=== PATIENT | male | born 1970 | race African-American/Black ===

== ENCOUNTER 2022-01-06 15:47 | Observation (INO) ==
[2022-01-06 16:12] LABS: Basophils % 0.8 % (0.0-0.8); Eosinophils # 0.1 10*3/uL (0.0-0.87); Eosinophils % 1.4 % (0.00-10.9); Hematocrit 43.4 VOL% (42.0-52.0); Immature Granulocytes % 0.4 %; Immature Granulocytes Absolute 0.02 #; Lymphocytes # 1.6 10*3/uL (1.4-4.0); Lymphocytes % 31.1 % (21.2-54.2); Mean Corpuscular HGB Conc 32.3 GM/DL (32-36); Mean Corpuscular Volume 84.1 FL (87-102); Mean Platelet Volume 12.8 FL (9.6-12.0); Monocytes # 0.5 10*3/uL (0.11-0.8); Neutrophils % 57.3 % (38.7-73.9); Platelet Count 168 T/CUMM (130-400); Red Blood Count 5.16 MC/CUMM (3.8-5.5); Red Cell Distribution Width 11.5 % (9.3-17.3); White Blood Count 5.1 T/CUMM (4-12)
[2022-01-06 16:29] LABS: Alanine Aminotransferase 42 U/L (16-61); Albumin 3.6 G/DL (3.4-5.0); Alkaline Phosphatase 102 U/L (45-117); Aspartate Amino Transferase 16 U/L (0-37); Bilirubin,Total < 0.39 MG/DL (0.20-1.00); Blood Urea Nitrogen 18 MG/DL (7-18); Calcium 9.3 MG/DL (8.5-10.1); Carbon Dioxide 24 MMOL/L (21-32); Chloride 95 MMOL/L (98-107); Osmolality,Calculated 290.1 MOS/KG (273-304); Potassium 4.2 MMOL/L (3.5-5.1); Sodium 128 MMOL/L (136-145); Total Protein 8.3 G/DL (6.4-8.2)
[2022-01-06 16:41] LABS: Glucose 683 MG/DL (74-106)
[2022-01-06] MEDS ORDERED: ASPIRIN 325 MG TABLET PO STA (17:53)
[2022-01-06] MEDS ORDERED: SODIUM CHLORIDE 0.9% 1,000 ML IV STA (17:58)
[2022-01-06] MEDS ORDERED: INSULIN REGULAR 100 UNIT/ML IV STA (18:02)
[2022-01-06 19:40] LABS: Platelet Estimate Normal
[2022-01-06 19:56] LABS: RBC,Urine 1 /HPF (0-4)
[2022-01-06 19:57] LABS: Bilirubin,Urine Negative (Negative); Blood, Urine Negative (Negative); Glucose,Urine (UA) >=1000 mg/dL (Negative); Ketones,Urine Negative (Negative); Nitrite,Urine Negative (Negative); Protein,Urine Negative (Negative); Urine Appearance Clear (Clear); Urine Color Yellow (Yellow); Urine Specific Gravity 1.015 (1.001-1.035); Urine Urobilinogen 0.2 eU/dL (<2.0)
[2022-01-06] MEDS ORDERED: GLUCAGON 1 MG VIAL IM PRN (19:57)
[2022-01-06] MEDS ORDERED: ONDANSETRON 4 MG/2 ML VIAL IV PRN (19:57)
[2022-01-06] MEDS ORDERED: ACETAMINOPHEN 325 MG TABLET PO PRN (19:57)
[2022-01-06] MEDS ORDERED: DEXTROSE 10% 250 ML BAG IV PRN (20:15)
[2022-01-06] MEDS: SODIUM CHLORIDE 0.9% 1,000 ML IV SCH (20:35)
[2022-01-06] MEDS: DOCUSATE SODIUM 100 MG CAPSULE PO SCH (21:45)
[2022-01-06] MEDS: INSULIN LISPRO 100 UNIT/ML SUBCUT SCH (21:49)
[2022-01-07] MEDS: INSULIN LISPRO 100 UNIT/ML SUBCUT SCH ×5 (01:37→21:45)
[2022-01-07] MEDS: SODIUM CHLORIDE 0.9% 1,000 ML IV SCH ×2 (04:48→16:52)
[2022-01-07 08:50] LABS: Basophils % 0.5 % (0.0-0.8); Eosinophils # 0.1 10*3/uL (0.0-0.87); Eosinophils % 2.2 % (0.00-10.9); Hematocrit 47.3 VOL% (42.0-52.0); Hemoglobin 15.1 GM/DL (14.0-18.0); Immature Granulocytes % 0.3 %; Immature Granulocytes Absolute 0.02 #; Lymphocytes # 1.8 10*3/uL (1.4-4.0); Lymphocytes % 29.9 % (21.2-54.2); Mean Corpuscular HGB Conc 31.9 GM/DL (32-36); Mean Corpuscular Volume 84.5 FL (87-102); Mean Platelet Volume 12.5 FL (9.6-12.0); Monocytes # 0.5 10*3/uL (0.11-0.8); Monocytes % 7.5 % (1.7-12.7); Neutrophils % 59.6 % (38.7-73.9); Platelet Count 179 T/CUMM (130-400); Red Cell Distribution Width 11.7 % (9.3-17.3)
[2022-01-07 09:09] LABS: Alanine Aminotransferase 43 U/L (16-61); Albumin 3.5 G/DL (3.4-5.0); Alkaline Phosphatase 101 U/L (45-117); Aspartate Amino Transferase 17 U/L (0-37); Bilirubin,Total < 0.39 MG/DL (0.20-1.00); Blood Urea Nitrogen 15 MG/DL (7-18); Calcium 9.3 MG/DL (8.5-10.1); Carbon Dioxide 27 MMOL/L (21-32); Chloride 107 MMOL/L (98-107); Glucose 228 MG/DL (74-106); Osmolality,Calculated 282.7 MOS/KG (273-304); Potassium 3.8 MMOL/L (3.5-5.1); Sodium 138 MMOL/L (136-145); Total Protein 8.1 G/DL (6.4-8.2)
[2022-01-07] MEDS: DAPAGLIFLOZIN 10 MG TABLET PO SCH (10:24)
[2022-01-07] MEDS: INSULIN GLARGINE 100 UNIT/ML SUBCUT SCH (10:24)
[2022-01-07] MEDS: PANTOPRAZOLE 40 MG TABLET PO SCH (10:25)
[2022-01-07] MEDS: DOCUSATE SODIUM 100 MG CAPSULE PO SCH ×2 (10:25→21:44)
[2022-01-08 05:46] LABS: Calcium 8.7 MG/DL (8.5-10.1); Potassium 3.6 MMOL/L (3.5-5.1)
[2022-01-08] MEDS: PANTOPRAZOLE 40 MG TABLET PO SCH (08:19)
[2022-01-08] MEDS: DAPAGLIFLOZIN 10 MG TABLET PO SCH (08:19)
[2022-01-08] MEDS: INSULIN LISPRO 100 UNIT/ML SUBCUT SCH (08:20)
[2022-01-08] MEDS: INSULIN GLARGINE 100 UNIT/ML SUBCUT SCH (08:20)
[2022-01-08] MEDS: SODIUM CHLORIDE 0.9% 1,000 ML IV SCH (08:23)
[2022-01-08 08:24] VITALS: BP 140/86
[2022-01-08] MEDS: DOCUSATE SODIUM 100 MG CAPSULE PO SCH (08:35)
== END 2022-01-08 10:08 | disposition home or self-care (01) ==
LOC: N.ED 15:47 → N.5E 15:47
PROVIDERS: ADMIT Internal Medicine; ATTEND Internal Medicine